=== PATIENT | female | born 1965 | race Caucasian/White ===

== ENCOUNTER 2017-04-28 07:57 | Emergency (ER) | payer SELFPAY ==
[~2017-04-28] VITALS: Ht 160 cm; Wt 60.8 kg
[~2017-04-28 07:57] MED LIST: ALBUAER19 INH; ASPI-390 PO; BUPR100T4 PO; TRAM-10 PO
[2017-04-28 08:02] VITALS: TEMP 36.4; Ht 160 cm; Wt 60.8 kg
[2017-04-28] MEDS ORDERED: XYLOCAINE 1%/SOD BICARB 20 ML VIAL INFIL ONE (08:30)
[2017-04-28] MEDS ORDERED: DIPHTHERIA/TETANUS/PERTUSSIS 0.5 ML SYR/VIAL IM. ONE (08:30)
--- NOTE | 2017-04-28 08:58 | DIAGNOSTIC IMAGING REPORT ---
L FOOT MIN 3 VIEWS ROUTINE CLINICAL HISTORY: 51 years-old Female presenting with eval planter FB. TECHNIQUE: Frontal, oblique, and lateral views of the left foot were obtained. COMPARISON: 03/14/2015. FINDINGS: Mild hallux valgus unchanged. No acute osseous fracture or malalignment. No radiopaque foreign body at the site of clinical interest. No significant degenerative change. IMPRESSION: No radiopaque foreign body. If there is continuing clinical concern, ultrasound is more sensitive. Electronically signed by: Henry Art M.D. 04/28/2017 8:56 AM Dictated Date/Time: 04/28/2017 8:55 AM
--- NOTE | 2017-04-28 09:51 | DIAGNOSTIC IMAGING REPORT ---
EXTREMITY NONVASCULAR LIMITED CLINICAL HISTORY: 51 years-old Female presenting with L foot; eval FB. TECHNIQUE: Real-time grayscale ultrasound imaging of the left foot was performed. Color Doppler was also performed. COMPARISON: Radiographs performed earlier the same day. FINDINGS: Along the plantar aspect of the left foot a superficial echogenic region measuring 2 mm is noted centered in the cutis and minimally extending into the subcutaneous fat. This results in posterior acoustic shadowing. No significant peripheral hyperemia or associated fluid collection. IMPRESSION: 1. Findings consistent with foreign body within the cutis minimally extending into the subcutaneous tissue at the site of clinical interest in the left foot. Electronically signed by: Henry Art M.D. 04/28/2017 9:49 AM Dictated Date/Time: 04/28/2017 9:48 AM
[2017-04-28] MEDS ORDERED: VNTHFA/IN INH (10:09)
[2017-04-28] MEDS ORDERED: DOXY100C2 PO (11:22)
[2017-04-28 11:35] VITALS: BP 121/90; PULSE 81; O2SAT 98
--- NOTE | 2017-04-28 17:48 | EMERGENCY ROOM VISIT NOTE ---
ED Visit Note First contact with patient: 08:10 Chief Complaint: I have something stuck in the bottom of my left foot. History of Present Illness: Ms. Stephens is a 51-year-old white female who ambulates into the ED complaining of a possible foreign body in the plantar surface of her left foot. Patient reports that she was at home last night walking barefoot and believes she stood on a toothpick. She removed most of the toothpick but still feels there is a piece in the bottom of her foot. She had made multiple attempts to remove it but was unsuccessful. Associated with this patient reports she is having a throbbing pain that becomes sharp with ambulation on the plantar surface of the left foot. She rates her discomfort 5/10. The pain is nonradiating. Her pain also worsens with palpation. She has not identified any alleviating factors related to the pain. She has not taken medications for pain prior to arrival at the hospital. Associated with her pain she reports she has paresthesias of all her toes on the foot. She denies any associated fevers, chills, sweats, puslike drainage, red streaking, overall foot weakness, decreased appetite, nausea/vomiting. Review of Systems: As noted above in history of present illness. Past Medical History: As previously noted, kidney disease, asthma, bronchitis, unspecified urinary problem, hayfever status post cholecystectomy, section 2, unspecified dental implants, unspecified wrist surgery, unspecified kidney surgery. Current Medications: Allergies to Medications: Amoxicillin, Cipro, codeine, imaging denies, nitrates Social History: Patient is currently employed; she lives by herself and feels safe in her home environment; she admits to tobacco and alcohol use. Tetanus Immunization Status: Patient is unsure and believes it's greater than 10 years. Physical Examination: Vital Signs: Date Time Temp Pulse Resp B/P (MAP) Pulse Ox O2 Delivery O2 Flow Rate FiO2 04/28/17 11:35 81 15 121/90 98 04/28/17 11:10 81 15 121/90 98 04/28/17 08:02 36.4 74 20 136/93 98 Room Air GENERAL: 51-year-old female in mild distress due to pain, nontoxic-appearing, afebrile and hemodynamically stable. NEUROLOGICAL: Awake, alert and oriented to person, place and time. Answering questions appropriately and following commands. SKIN: Warm, dry and pink. Left Foot: Patient has a foreign body on the plantar surface of the left foot. There is mild erythema around this area but no edema. There is no active bleeding. No lymphangitis. LEFT FOOT: No gross bony deformity. Soft tissue injury and foreign body is noted above. Full range of motion in plantar flexion and dorsiflexion of the ankle and flexion and extension of all toes. Throughout the foot the skin was warm and pink and capillary refill is brisk. Patient was able to distinguish light sensations through all dermatomes of the foot and toes. ED Course: Patient is assessed as noted above. Patient's medication list was reviewed. Patient was given an Adacel booster. Left Foot X-Rays: Were read by myself and the radiologist showing no acute fractures or dislocations. No foreign bodies were noted. Radiologist suggested ultrasound. Left Foot Ultrasound: Was reviewed by myself and read by the radiologist showing findings consistent with foreign body within the cutis minimally extending into the subcutaneous tissues. Foreign Body Removal: Complexity: Basic Verbal consent was obtained after the risks and benefits were explained. The skin was prepped with betadine and a sterile field set. The wound area was anesthetized with 1.3 mL of buffered 1% lidocaine. The foreign body was easily removed with a pair of forceps; foreign body was a 2 -3 mm wooden toothpick tip. The Wound was explored and no additional foreign bodies were found. Copious irrigation was performed using sterile saline. Hemostasis and excellent approximation was achieved. Antibacterial ointment and a sterile dressing applied. No complications and the patient tolerated the procedure well. Patient was educated about tonight's findings and instructed on her treatment plan; she verbalizes understanding and agreement with this plan. Clinical Impression: Left foot foreign body. Disposition: Patient discharged home in stable condition; prior to departure she was reassessed and subjectively reported that she was pain-free. Plan: Patient was encouraged use ibuprofen or acetaminophen as needed for pain. Patient was placed on a prophylactic causes of doxycycline; 100 mg 2 times a day for 7 days. Patient was educated on wound care and signs of infection. Patient was encouraged to follow-up with her family physician or return to the ED for any signs of infection or any new/concerning symptoms.
== END 2017-04-28 11:35 | disposition home or self-care (01) ==
LOC: C.EDB 07:58
DX: S90.852A Superficial foreign body, left foot, initial encounter (principal); W45.8XXA Other foreign body or object entering through skin, initial encounter; Y92.9 Unspecified place or not applicable

== ENCOUNTER 2018-03-06 21:06 | Emergency (ER) | payer SELFPAY ==
[~2018-03-06] VITALS: Ht 160 cm; Wt 61.1 kg
[~2018-03-06 21:06] MED LIST changes: -ALBUAER19 INH; -ASPI-390 PO; -BUPR100T4 PO; +DOXY100C2 PO; +VNTHFA/IN INH
[2018-03-06 21:14] VITALS: TEMP 36.7; Ht 160 cm; Wt 61.1 kg
[2018-03-06] MEDS ORDERED: RABIES IMMUNE GLOBULIN 300 UNIT/ML INJ IM. ONE (22:00)
[2018-03-06] MEDS ORDERED: RABIES VACCINE (IMOVAX) HUMAN DIPL CELL 2.5 INTER.UNIT/ML SYR IM. ONE (22:00)
--- NOTE | 2018-03-06 22:51 | EMERGENCY ROOM VISIT NOTE ---
History First contact with patient: 21:28 Chief Complaint: RABIES VACCINE Stated Complaint: CAT BITE AND SCRATCHES History of Present Illness The patient is a 52 year old female who presents to the Emergency Room via private vehicle with complaints of "cat bite and scratches". The patient states that this past Tuesday, while in [place] she sustained scratches and bites from a cat. She notes that this was on her right hand, as well as her left calf. She states that since then she has been on antibiotics she was evaluated there. The cat was a straight. He cannot be quarantined. She notes that since then she has been in contact with the CDC, and recommended to have the rabies vaccination series. She has never completed this before. Tetanus up -to-date. She is not immunocompromised. She states that she did not seek the rabies series in [place] as she was concerned about financial responsibility. She rates her current pain is a 5/10. She notes that although the hand and leg were initially infected, the doxycycline that she has been taking as 100 mg twice daily, and having up to 5 doses so far notes great improvement. No fevers. Review of Systems A complete 6-point Review of Systems was discussed with the patient, with pertinent positives and negatives listed in the History of Present Illness. All remaining Review of Systems questions can be considered negative unless otherwise specified. Past Medical/Surgical History Medical Problems: (1) Asthma (2) Bronchitis (3) Emphysema (4) Gallbladder problem (5) Kidney disease (6) Stomach problems (7) Urinary problem Social History Smoking Status: Current Every Day Smoker Alcohol Use: occasionally Marital Status: Current/Historical Medications Scheduled Doxycycline Hyclate (Vibramycin), 100 MG PO BID Scheduled PRN Albuterol Hfa (Ventolin Hfa), 2-4 PUFFS INH Q6H PRN for SOB/Wheezing Tramadol (Ultram), 50 MG PO Q8H PRN for Pain Allergies Coded Allergies: Iodinated Diagnostic Agents (Verified Allergy, Severe, SHORTNESS OF BREATH , 04/28/17) Amoxicillin (Verified Allergy, Mild, SLIGHT RASH IF TAKEN MORE THAN 7 DAYS , 04/28/17) Nitrates, Organic (Verified Allergy, Mild, RASH, 04/28/17) Nitrofurantoin (Verified Allergy, Mild, RASH, 04/28/17) Quinolones (Verified Allergy, Mild, TONGUE NUMBNESS, 04/28/17) PATIENT STATES SHE CAN TAKE LEVAQUIN & BACTRIM FOR A SHORT PERIOD OF TIME LONG SHE TAKES BENADRYL WITH IT. Codeine (Verified Allergy, Unknown, 04/28/17) Morphine (Verified Allergy, Unknown, 04/28/17) Sulfa Antibiotics (Verified Allergy, Unknown, UNKNOWN RXN TO SULFA DRUGS, 04/28/17) Varenicline (Unverified Adverse Reaction, Severe, JOINTS LOCK UP, LIP NUMBNESS, 04/28/17) Ciprofloxacin (Verified Adverse Reaction, Intermediate, BODY NUMB, 04/28/17 ) Physical Exam Vital Signs Date Time Temp Pulse Resp B/P (MAP) Pulse Ox O2 Delivery O2 Flow Rate FiO2 03/06/18 22:55 68 16 151/99 95 03/06/18 21:14 36.7 73 18 148/102 98 Room Air Physical Exam VITAL SIGNS - Vital signs and nursing notes were reviewed. Stable. GENERAL -52-year-old female appearing her stated age who is in no acute distress. Communicates well with provider and answers questions appropriately. SKIN -overlying the dorsum of the right hand as well as the posterior left calf the patient is exhibiting puncture wounds that have an area of erythema and slight edema. This is consistent with that of cellulitis. No drainage. HEAD - NC/AT. EYES - Sclera anicteric. EARS - No deformities of external structures noted on gross examination bilaterally. NOSE - Midline and without cyanosis. No epistaxis or purulent drainage noted. MOUTH/OROPHARYNX - Without perioral cyanosis. NECK - Neck with FROM. Supple to palpation. LUNGS - Chest wall symmetric without accessory muscle use, intercostals retractions, or central cyanosis. Normal vesicular breath sounds CTA B/L. No wheezes, rales, or rhonchi appreciated. CARDIAC - RRR with S1/S2. No murmur, rubs, or gallops appreciated. EXTREMITIES - No clubbing or peripheral cyanosis. No pretibial edema present. Minimal tenderness overlying the patient's dorsum of the right hand as well as posterior left calf. +5/5 strength noted in UE/LE bilaterally. NEUROLOGIC - Cranial nerves II through XII grossly intact. Sensory intact to light touch throughout. PSYCH - A&Ox3 and cooperates fully with examiner. Pt is very pleasant and interacts well with examiner. Medical Decision & Procedures Medications Administered Medications (Trade) Dose Ordered Sig/Ale Route Start Time Stop Time Status Last Admin Dose Admin Rabies Vaccine Human Diploid Cell (Imovax Rabies) 2.5 interunit ONCE ONCE IM. 03/06/18 22:00 03/06/18 22:01 DC 03/06/18 22:34 2.5 INTERUNIT Rabies Immune Globulin (HyperRAB) 1,222 unit ONCE ONCE IM. 03/06/18 22:00 03/06/18 22:01 DC 03/06/18 22:34 1,222 UNIT Medical Decision Patient was seen and evaluated as above in room D5. Review was performed of nursing notes and vital signs. After obtaining a thorough history and physical examination the above work up was performed. She presents to us today with request for the rabies vaccination series. I believe it is warranted. No fevers. She is Lalo on antibiotics and has had great success alleviating the infection of the hand and leg. No drainable abscess. She was offered x-ray to rule out foreign body and respectfully declined. She was weight-based dose to the immunoglobulin as well as the vaccination. She is to return on specified days. She is to follow with the family doctor this for wound recheck or return with worsening. The patient was educated upon management, educated upon todays findings/results, educated upon symptoms in which to return, had questions answered prior to discharge, and was discharged home in good condition. She is not immunocompromised and her tetanus is up-to-date. I did not inject into the wounds as these were showing signs of cellulitis and I believe that the risk outweighs the benefit. In the evaluation and treatment of this patient the following differential diagnoses were entertained: Need for rabies vaccination series, cellulitis. Impression Primary Impression: Rabies, need for prophylactic vaccination against Departure Information Dispostion Home / Self-Care Condition GOOD Referrals No Doctor, Assigned (PCP) Patient Instructions My [facility] Additional Instructions You were seen in the emergency department for initiation of the rabies vaccination series. At this time you have received both the immunoglobulin and the rabies vaccine. I do recommend you that you return on days 3, 7 and 14. Today is considered day 0. This would mean that you would return on the , and 20 March in the evening time. Please watch for signs of reaction to include redness, swelling, hives, or any new/concerning symptoms and if these develop please return. It is to be expected that you may feel slightly nauseous tomorrow. If you develop fever, chills, worsening redness at the sites we were bitten or injected or any other symptoms please return.
[2018-03-06 22:55] VITALS: BP 151/99; PULSE 68; O2SAT 95
== END 2018-03-06 22:56 | disposition home or self-care (01) ==
LOC: C.EDB 21:08 → C.EDD 22:56
DX: Z20.3 Contact with and (suspected) exposure to rabies (principal); W55.01XA Bitten by cat, initial encounter; W55.03XA Scratched by cat, initial encounter; Z23 Encounter for immunization; J45.909 Unspecified asthma, uncomplicated; J43.9 Emphysema, unspecified; N28.9 Disorder of kidney and ureter, unspecified; F17.200 Nicotine dependence, unspecified, uncomplicated; Z79.51 Long term (current) use of inhaled steroids; Z88.4 Allergy status to anesthetic agent; Z88.2 Allergy status to sulfonamides; Z88.8 Allergy status to other drugs, medicaments and biological substances; Z88.1 Allergy status to other antibiotic agents

== ENCOUNTER 2018-03-09 15:38 | Emergency (ER) | payer SELFPAY ==
[~2018-03-09] VITALS: Ht 160 cm; Wt 60.5 kg
[2018-03-09 16:00] VITALS: BP 129/94; PULSE 83; TEMP 36.7; O2SAT 99; Ht 160 cm; Wt 60.5 kg
[2018-03-09] MEDS ORDERED: RABIES VACCINE (IMOVAX) HUMAN DIPL CELL 2.5 INTER.UNIT/ML SYR IM. ONE (16:00)
--- NOTE | 2018-03-09 16:01 | EMERGENCY ROOM VISIT NOTE ---
ED Visit Note First contact with patient: 15:55 CHIEF COMPLAINT: The second rabies vaccine HISTORY OF PRESENT ILLNESS: This 52-year-old female presents to ER for her second rabies vaccine. The patient was scratched and bitten by a stray cat when she was in [place]. She is being followed by her PCP for her wounds obtained from the cat on her right hand and left ankle.. She was there today. She states that she goes back in 1 week. She is taking antibiotics as prescribed. The patient states she tolerated last immunization. REVIEW OF SYSTEMS: 6 system review was performed and was negative unless stated otherwise in history of present illness. PMH: The patient is healthy; see chronic problem list. There are no changes from prior ER visit. SOCIAL HISTORY: Patient admits to tobacco use and occasional alcohol use. PHYSICAL EXAM: Vital Signs: Were reviewed reviewed Nurse's notes. GENERAL: 52- year-old white female appears in no acute distress. MENTAL Status: Alert and oriented 3. SKIN: The patient has bandages on her right hand and left ankle . EMERGENCY DEPARTMENT COURSE: Patient was evaluated. I did not examine the wound since she is being followed by her PCP for the wounds. The patient was given Imovax. The patient was discharged home in stable condition. DIAGNOSIS: Post exposure rabies prophylaxis DISCHARGE INSTRUCTIONS: Continue following rabies vaccine series. Return to ER as previously directed. Problem List Medical Problems: (1) Asthma Status: Chronic (2) Bronchitis Status: Resolved (3) Emphysema Status: Chronic (4) Gallbladder problem Status: Chronic (5) Kidney disease Status: Chronic (6) Stomach problems Status: Chronic (7) Urinary problem Status: Chronic Current/Historical Medications Scheduled Doxycycline Hyclate (Vibramycin), 100 MG PO BID Scheduled PRN Albuterol Hfa (Ventolin Hfa), 2-4 PUFFS INH Q6H PRN for SOB/Wheezing Tramadol (Ultram), 50 MG PO Q8H PRN for Pain Allergies Coded Allergies: Iodinated Diagnostic Agents (Verified Allergy, Severe, SHORTNESS OF BREATH , 04/28/17) Amoxicillin (Verified Allergy, Mild, SLIGHT RASH IF TAKEN MORE THAN 7 DAYS , 04/28/17) Nitrates, Organic (Verified Allergy, Mild, RASH, 04/28/17) Nitrofurantoin (Verified Allergy, Mild, RASH, 04/28/17) Quinolones (Verified Allergy, Mild, TONGUE NUMBNESS, 04/28/17) PATIENT STATES SHE CAN TAKE LEVAQUIN & BACTRIM FOR A SHORT PERIOD OF TIME LONG SHE TAKES BENADRYL WITH IT. Codeine (Verified Allergy, Unknown, 04/28/17) Morphine (Verified Allergy, Unknown, 04/28/17) Sulfa Antibiotics (Verified Allergy, Unknown, UNKNOWN RXN TO SULFA DRUGS, 04/28/17) Varenicline (Unverified Adverse Reaction, Severe, JOINTS LOCK UP, LIP NUMBNESS, 04/28/17) Ciprofloxacin (Verified Adverse Reaction, Intermediate, BODY NUMB, 04/28/17 ) Vital Signs Date Time Temp Pulse Resp B/P (MAP) Pulse Ox O2 Delivery O2 Flow Rate FiO2 03/09/18 15:50 36.7 83 17 129/94 99 Room Air Departure Information Referrals No Doctor, Assigned (PCP) Patient Instructions My [facility]
== END 2018-03-09 16:23 | disposition home or self-care (01) ==
LOC: C.EDB 15:40 → C.EDD 16:23
DX: Z20.3 Contact with and (suspected) exposure to rabies (principal); Z23 Encounter for immunization; W55.01XA Bitten by cat, initial encounter; W55.03XA Scratched by cat, initial encounter; J45.909 Unspecified asthma, uncomplicated; Z72.0 Tobacco use; Z91.041 Radiographic dye allergy status; Z88.0 Allergy status to penicillin; Z88.1 Allergy status to other antibiotic agents; Z88.2 Allergy status to sulfonamides; Z88.6 Allergy status to analgesic agent; Z88.8 Allergy status to other drugs, medicaments and biological substances

== ENCOUNTER 2018-03-13 16:30 | Emergency (ER) | payer SELFPAY ==
[~2018-03-13] VITALS: Ht 160 cm; Wt 61.1 kg
[2018-03-13 16:37] VITALS: Ht 160 cm; Wt 61.1 kg
[2018-03-13] MEDS ORDERED: RABIES VACCINE (IMOVAX) HUMAN DIPL CELL 2.5 INTER.UNIT/ML SYR IM. ONE (16:45)
--- NOTE | 2018-03-13 16:52 | EMERGENCY ROOM VISIT NOTE ---
ED Visit Note First contact with patient: 16:43 CHIEF COMPLAINT: Rabies vaccination #3 HISTORY OF PRESENT ILLNESS: Patient is a 52-year-old female who returns to the emergency department as advised for her third of four rabies vaccinations. Series was initiated here. Patient is presently taking antibiotics, she has about 3 days left. She is following with her PCP regarding her wounds, which she states are healing, but "not as quickly as I would like." She has some slight soreness in the left upper arm at the site of her last injection otherwise no other questions or concerns. REVIEW OF SYSTEMS: Review of systems as per HPI. All other systems reviewed were negative. At least 6 systems reviewed.. PMH: Reviewed and unchanged from prior visit. SOCIAL HISTORY: Patient lives at home. Smoker. PHYSICAL EXAM: Vital Signs: Reviewed Nurse's notes. HEAD: Atraumatic, without temporal or scalp tenderness. EYES: PERRL, EOMI, no discharge or injection. SKIN: Scabbed over wounds on the left lower leg, with slight erythema. No overt cellulitic changes. NEUROLOGICAL: Alert and cooperative. Sensory and motor functions grossly intact. EMERGENCY DEPARTMENT COURSE: The patient was given Imovax IM, observed and then discharged. She will return to the emergency department for her final vaccination in 1 week, sooner for any problems or concerns. Medication reconciliation: I attest that I have personally reviewed the patient' s current medication list. Blood pressure screening : Patient was found to have normal blood pressure on screening and does not require follow-up. Problem List Medical Problems: (1) Asthma Status: Chronic (2) Bronchitis Status: Resolved (3) Emphysema Status: Chronic (4) Gallbladder problem Status: Chronic (5) Kidney disease Status: Chronic (6) Stomach problems Status: Chronic (7) Urinary problem Status: Chronic Current/Historical Medications Scheduled Doxycycline Hyclate (Vibramycin), 100 MG PO BID Scheduled PRN Albuterol Hfa (Ventolin Hfa), 2-4 PUFFS INH Q6H PRN for SOB/Wheezing Tramadol (Ultram), 50 MG PO Q8H PRN for Pain Allergies Coded Allergies: Iodinated Diagnostic Agents (Verified Allergy, Severe, SHORTNESS OF BREATH , 04/28/17) Amoxicillin (Verified Allergy, Mild, SLIGHT RASH IF TAKEN MORE THAN 7 DAYS , 04/28/17) Nitrates, Organic (Verified Allergy, Mild, RASH, 04/28/17) Nitrofurantoin (Verified Allergy, Mild, RASH, 04/28/17) Quinolones (Verified Allergy, Mild, TONGUE NUMBNESS, 04/28/17) PATIENT STATES SHE CAN TAKE LEVAQUIN & BACTRIM FOR A SHORT PERIOD OF TIME LONG SHE TAKES BENADRYL WITH IT. Codeine (Verified Allergy, Unknown, 04/28/17) Morphine (Verified Allergy, Unknown, 04/28/17) Sulfa Antibiotics (Verified Allergy, Unknown, UNKNOWN RXN TO SULFA DRUGS, 04/28/17) Varenicline (Unverified Adverse Reaction, Severe, JOINTS LOCK UP, LIP NUMBNESS, 04/28/17) Ciprofloxacin (Verified Adverse Reaction, Intermediate, BODY NUMB, 04/28/17 ) Vital Signs Date Time Temp Pulse Resp B/P (MAP) Pulse Ox O2 Delivery O2 Flow Rate FiO2 03/13/18 17:09 36.6 71 18 130/89 99 03/13/18 16:37 36.6 71 18 130/89 99 Room Air Medications Administered Medications (Trade) Dose Ordered Sig/Ale Route Start Time Stop Time Status Last Admin Dose Admin Rabies Vaccine Human Diploid Cell (Imovax Rabies) 2.5 interunit ONCE ONCE IM. 03/13/18 16:45 03/13/18 16:46 DC 03/13/18 16:45 2.5 INTERUNIT Departure Information Impression Primary Impression: Rabies, need for prophylactic vaccination against Referrals No Doctor, Assigned (PCP) Patient Instructions My [facility] Additional Instructions Return to the emergency department next Tuesday, 827, for your final vaccination.
[2018-03-13 17:09] VITALS: BP 130/89; PULSE 71; TEMP 36.6; O2SAT 99
== END 2018-03-13 17:10 | disposition home or self-care (01) ==
LOC: C.EDB 16:32 → C.EDD 17:10
DX: Z20.3 Contact with and (suspected) exposure to rabies (principal); Z23 Encounter for immunization; J45.909 Unspecified asthma, uncomplicated; Z88.1 Allergy status to other antibiotic agents; Z88.2 Allergy status to sulfonamides; Z88.5 Allergy status to narcotic agent; Z88.8 Allergy status to other drugs, medicaments and biological substances; Z91.041 Radiographic dye allergy status; F17.200 Nicotine dependence, unspecified, uncomplicated

== ENCOUNTER 2018-03-20 20:38 | Emergency (ER) | payer SELFPAY ==
[~2018-03-20] VITALS: Ht 160 cm; Wt 59.6 kg
[2018-03-20 20:47] VITALS: BP 137/95; TEMP 36.8; Ht 160 cm; Wt 59.6 kg
[2018-03-20] MEDS ORDERED: RABIES VACCINE (IMOVAX) HUMAN DIPL CELL 2.5 INTER.UNIT/ML SYR IM. ONE (21:45)
--- NOTE | 2018-03-20 21:46 | EMERGENCY ROOM VISIT NOTE ---
ED Visit Note First contact with patient: 21:15 CHIEF COMPLAINT: Rabies prophylaxis HISTORY OF PRESENT ILLNESS: This 52-year-old female patient presents to the emergency department by private vehicle for their fourth and final rabies shot. The patient has not had any complications from the previous injections. She reports cat bites on her left lower leg that she feels are healing fairly well, though they are not completely healed up and she wants me to look at them today. REVIEW OF SYSTEMS: A 6 system review of systems was completed with positives and pertinent negatives listed in the HPI. ALLERGIES: Reviewed in chart, see below. MEDICATIONS: Reviewed in chart, see below. PMH: Unchanged from previous visit. PHYSICAL EXAM: Vital Signs: Reviewed Nurse's notes, vital signs stable. GENERAL : Pleasant and cooperative, in no acute distress, well-developed, well- nourished. HEAD: Atraumatic, without temporal or scalp tenderness. EYES: PERRLA, EOMI, no discharge or injection. SKIN: [place], warm, dry. Several small scabbed over wounds on the left lower leg noted with slight erythema. No overt cellulitic changes. No purulent drainage. Nontender to palpation. NEUROLOGICAL: Alert and cooperative. Sensory and motor functions grossly intact. EMERGENCY DEPARTMENT COURSE: I examined the patient. The patient was given Imovax 1ml IM. The patient was observed for 20 minutes with no reaction. The patient was encouraged to continue follow-up with her PCP for any other concerns regarding her cat bite wounds. The patient was discharged home in stable condition and ambulatory. Problem List Medical Problems: (1) Asthma Status: Chronic (2) Bronchitis Status: Resolved (3) Emphysema Status: Chronic (4) Gallbladder problem Status: Chronic (5) Kidney disease Status: Chronic (6) Stomach problems Status: Chronic (7) Urinary problem Status: Chronic Current/Historical Medications Scheduled Doxycycline Hyclate (Vibramycin), 100 MG PO BID Scheduled PRN Albuterol Hfa (Ventolin Hfa), 2-4 PUFFS INH Q6H PRN for SOB/Wheezing Tramadol (Ultram), 50 MG PO Q8H PRN for Pain Allergies Coded Allergies: Iodinated Diagnostic Agents (Verified Allergy, Severe, SHORTNESS OF BREATH , 04/28/17) Amoxicillin (Verified Allergy, Mild, SLIGHT RASH IF TAKEN MORE THAN 7 DAYS , 04/28/17) Nitrates, Organic (Verified Allergy, Mild, RASH, 04/28/17) Nitrofurantoin (Verified Allergy, Mild, RASH, 04/28/17) Quinolones (Verified Allergy, Mild, TONGUE NUMBNESS, 04/28/17) PATIENT STATES SHE CAN TAKE LEVAQUIN & BACTRIM FOR A SHORT PERIOD OF TIME LONG SHE TAKES BENADRYL WITH IT. Codeine (Verified Allergy, Unknown, 04/28/17) Morphine (Verified Allergy, Unknown, 04/28/17) Sulfa Antibiotics (Verified Allergy, Unknown, UNKNOWN RXN TO SULFA DRUGS, 04/28/17) Varenicline (Unverified Adverse Reaction, Severe, JOINTS LOCK UP, LIP NUMBNESS, 04/28/17) Ciprofloxacin (Verified Adverse Reaction, Intermediate, BODY NUMB, 04/28/17 ) Vital Signs Date Time Temp Pulse Resp B/P (MAP) Pulse Ox O2 Delivery O2 Flow Rate FiO2 03/20/18 22:20 77 16 96 03/20/18 20:47 36.8 76 18 137/95 98 Room Air Medications Administered Medications (Trade) Dose Ordered Sig/Ale Route Start Time Stop Time Status Last Admin Dose Admin Rabies Vaccine Human Diploid Cell (Imovax Rabies) 2.5 interunit ONCE ONCE IM. 03/20/18 21:45 03/20/18 21:46 DC 03/20/18 21:45 2.5 INTERUNIT Departure Information Impression Primary Impression: Encounter for repeat administration of rabies vaccination Dispostion Home / Self-Care Condition GOOD Referrals No Doctor, Assigned (PCP) Patient Instructions My [facility] Additional Instructions You have been treated in the emergency department for your fourth and final rabies vaccination. You have completed the full rabies vaccination course. Please follow-up with your primary care provider as needed for any further concerns regarding her cat bite.
[2018-03-20 22:20] VITALS: PULSE 77; O2SAT 96
== END 2018-03-20 22:20 | disposition home or self-care (01) ==
LOC: C.EDB 20:39 → C.EDD 22:20
DX: Z23 Encounter for immunization (principal); Z20.3 Contact with and (suspected) exposure to rabies; J45.909 Unspecified asthma, uncomplicated; J43.9 Emphysema, unspecified; Z91.041 Radiographic dye allergy status; Z88.1 Allergy status to other antibiotic agents; Z88.5 Allergy status to narcotic agent